=== PATIENT | female | born 1955 | race Caucasian/White ===

== ENCOUNTER → 2021-12-28 | Outpatient (CLI) | payer OTHER ==
[~2021-12-28] VITALS: Ht 149.9 cm; Wt 75.9 kg
[~2021-12-28] MED LIST: LIDOCAINE 1% INJ 10 ML VIAL INJ ONE
--- NOTE | 2021-12-28 11:10 | Diagnostic Imaging Report ---
INDICATION: Left breast abnormality on recent ultrasound. Patient presents for ultrasound guided biopsy. TECHNIQUE: The patient was brought to the procedure room and placed on the table in the supine position. Ultrasound imaging of the left breast was performed to evaluate for an appropriate entry site. The left breast was then prepped and draped in the usual sterile fashion. A small amount of 1% lidocaine was utilized for local anesthesia. A total of 4 core biopsies was obtained of the area of shadowing at the 4 o'clock location of the left breast 2 cm from the nipple utilizing a 14-gauge Achieve needle. A marker clip was then deployed. Hemostasis was obtained using manual compression. The patient tolerated the procedure well and was sent for a post procedure mammogram in satisfactory condition. IMPRESSION: Successful ultrasound-guided core biopsy of the area of shadowing at the 4 o'clock location of the left breast 2 cm from the nipple. Pathology results are currently pending. Dictated by: Dictated on workstation # [id number]
--- NOTE | 2021-12-28 13:26 | Diagnostic Imaging Report ---
INDICATION: Status post left breast ultrasound guided biopsy. Unilateral left 2-D CC and ML mammography was performed after patient underwent ultrasound-guided biopsy. Images demonstrate a marker clip in the mid left breast just lateral to the nipple line. There is a circumscribed nodule in the lateral left breast with marker clip from prior biopsy. IMPRESSION: Marker clip placement, as described. Patient is status post ultrasound-guided core biopsy. Dictated by: Dictated on workstation # [id number]
== END ==
LOC: RAD 09:00
PROVIDERS: ATTEND Nurse Practitioner
DX: R92.8 Other abnormal and inconclusive findings on diagnostic imaging of breast (principal); Z98.82 Breast implant status
CPT/HCPCS: 19083; 77065; G0279

== ENCOUNTER 2022-01-19 12:05 | Emergency (ER) | payer MEDICARE, MEDICAID ==
[~2022-01-19] VITALS: Ht 150 cm; Wt 75.3 kg
--- NOTE | 2022-01-19 12:47 | ED General ---
General Chief Complaint: General Problems/Pain Stated Complaint: JOINT PAIN Nursing Triage Note: pt ambulatory to room. pt reports hx of rheumatoid and osteo arthritis and complains of bilat knee joint pain and left shoulder joint pain. describes pain as constant sharp pains. states she does not take tylenol or ibuprofen at home. states she has a "pain medicine the clinic gave her" but unsure what it is called. states she moved to the area from [place] and was getting chemo treatments for her arthritis previously. states she has been unable to continue this since moving here Source of Information: Patient History of Present Illness Date Seen by Provider: Jan 19, 2022 Time Seen by Provider: 12:25 Initial Comments Patient is a 66-year-old female who presents to the emergency room with a chief complaint of bilateral knee pain, left shoulder pain. She states that the pain is sharp and worsened with movements. She states that she normally gets infusions monthly for her rheumatoid arthritis but has been without for the last several months due to moving to the area and not having a shell press operator. Patient states that she saw [facility] and was given a prescription but only 2 weeks worth. She states she is not taking any other Tylenol or ibuprofen. No fevers or chills. No joint swelling although she does states she thinks her left knee is a little swollen. No rashes. No COVID complaints. Patient does state that tramadol has helped her in the past. She is awaiting referral from [facility] to a shell press operator. All other review of systems reviewed and negative except as stated. Timing/Duration: 1 Week Severity: Moderate Associated Systoms: Denies Symptoms Allergies and Home Medications Allergies Coded Allergies: No Known Drug Allergies (Unverified , 12/28/21) Patient Home Medication List Home Medication List Reviewed: Yes Tramadol HCl (Tramadol HCl) 50 Mg Tablet, 50 MG PO Q6H PRN for PAIN Prescribed by: YOSHI CROWLEY on 01/19/22 1255 Review of Systems Review of Systems Constitutional: see HPI EENTM: no symptoms reported Respiratory: no symptoms reported Cardiovascular: no symptoms reported Gastrointestinal: no symptoms reported Genitourinary: no symptoms reported Musculoskeletal: joint pain (bilateral knees and left shoulder) Skin: no symptoms reported Psychiatric/Neurological: Headache (mild) All Other Systems Reviewed Negative Unless Noted: Yes Past Dnfvxhv-Gnwzys-Wfofur Hx Patient Social History Tobacco Use?: No Use of E-Cig and/or Vaping dev: No Substance use?: No Alcohol Use?: No Immunizations Up To Date Influenza Vaccine Up-to-Date: Yes; Up-to-Date Physical Exam Vital Signs Vital Signs - First Documented 01/19/22 12:20 Temp 36.8 Pulse 87 Resp 20 B/P (MAP) 146/89 (108) Pulse Ox 98 Capillary Refill : Height, Weight, BMI Height: '" Weight: lbs. oz. kg; 33.00 BMI Method: General Appearance: No Apparent Distress, WD/WN Eyes: Bilateral Eye Normal Inspection, Bilateral Eye PERRL, Bilateral Eye EOMI HEENT: PERRL/EOMI Respiratory: Lungs Clear, Normal Breath Sounds, No Accessory Muscle Use, No Respiratory Distress Cardiovascular: Regular Rate, Rhythm Extremity: Normal Capillary Refill, Normal Inspection, Normal Range of Motion, Other (Slight warmth bilateral knees, no erythema, good range of motion, no obvious effusion) Neurologic/Psychiatric: Alert, Oriented x3, No Motor/Sensory Deficits Skin: Normal Color, Warm/Dry Progress/Results/Core Measures Suspected Sepsis SIRS Temperature: Pulse: 87 Respiratory Rate: 20 Blood Pressure 146 /89 Mean: 108 Results/Orders Vital Signs/I&O 01/19/22 12:20 Temp 36.8 Pulse 87 Resp 20 B/P (MAP) 146/89 (108) Pulse Ox 98 Capillary Refill : Blood Pressure Mean: 108 Progress Note : Time: 12:43 Progress Note Patient seen and examined, complains of joint pain due to rheumatoid arthritis, difficulty in obtaining rheumatology follow-up. Patient has seen urgent care/[facility] walk-in. Usually gets infusions monthly and has not had any since the summertime. No fevers, chills. Mild headache. No COVID symptoms. Exam is basically unremarkable except for some very mild warmth in bilateral knees. We will send 3 or 4 days of pain medication and have her follow-up again with [facility]. Departure Impression Primary Impression: Arthritis pain Disposition: 01 HOME, SELF-CARE Condition: Stable Departure-Patient Inst. Decision time for Depature: 12:52 Referrals: [facility] (PCP/Family) Primary Care Physician Patient Instructions: Physical Activity for People With Arthritis Add. Discharge Instructions: Drink plenty of fluids to stay well-hydrated. You can use mfnx-wos-nockali muscle rubs joint pain remedies such as Biofreeze, lidocaine patches. Ibuprofen 600 mg which is 3 mdiz-rkf-ezijqkx tablets every 6-8 hours with food as needed for pain. I have written you a short course of tramadol you can take take 1 every 6 hours as needed for more severe pain. Call [facility] for further management of your rheumatoid arthritis pain as the emergency department cannot do chronic pain management. Return to the emergency department for any new, concerning or emergent health complaints. Scripts Tramadol HCl (Tramadol HCl) 50 Mg Tablet 50 MG PO Q6H PRN for PAIN, #15 TAB 0 Refills Prov: YOSHI CROWLEY MD 01/19/22 Copy Copies To 1: MEG TEJEDA KATHRYN M MD Jan 19, 2022 12:47
[2022-01-19] MEDS ORDERED: TRM50T PO (12:54)
[2022-01-19 13:26] VITALS: BP 114/73
== END 2022-01-19 13:26 | disposition home or self-care (01) ==
LOC: EDUNIT# 12:05 → ER 12:09
DX: M17.9 Osteoarthritis of knee, unspecified (principal)
CPT/HCPCS: 99283

== ENCOUNTER 2022-01-29 08:28 | Emergency (ER) | payer MEDICARE, MEDICAID ==
[~2022-01-29] VITALS: Ht 149 cm; Wt 75.0 kg
[~2022-01-29 08:28] MED LIST changes: -LIDOCAINE 1% INJ 10 ML VIAL INJ ONE; +TRM50T PO
[2022-01-29] MEDS ORDERED: KETOROLAC 30 MG/ML VIAL IVP ONE (10:30)
[2022-01-29] MEDS ORDERED: fentaNYL INJ 100 MCG/2 ML AMP IVP ONE (10:30)
[2022-01-29 10:34] LABS: BASOPHILS % (AUTO) 0 % (0-10); EOSINOPHILS # (AUTO) 0.2 10^3/uL (0.0-0.3); EOSINOPHILS % (AUTO) 2 % (0-10); HEMATOCRIT 34 % (35-52); HEMOGLOBIN 10.9 g/dL (11.5-16.0); LYMPHOCYTES # (AUTO) 2.4 10^3/uL (1.0-4.0); LYMPHOCYTES % (AUTO) 20 % (12-44); MEAN CORPUSCULAR HEMOGLOBIN 29 pg (25-34); MEAN CORPUSCULAR HGB CONC 32 g/dL (32-36); MEAN CORPUSCULAR VOLUME 90 fL (80-99); MEAN PLATELET VOLUME 9.6 fL (9.0-12.2); MONOCYTES # (AUTO) 0.8 10^3/uL (0.0-1.0); MONOCYTES % (AUTO) 7 % (0-12); NEUTROPHILS # (AUTO) 8.3 10^3/uL (1.8-7.8); NEUTROPHILS % (AUTO) 71 % (42-75); PLATELET COUNT 235 10^3/uL (130-400); WHITE BLOOD COUNT 11.7 10^3/uL (4.3-11.0)
[2022-01-29 10:44] LABS: ALBUMIN 3.4 GM/DL (3.2-4.5); POTASSIUM 4.2 MMOL/L (3.6-5.0)
[2022-01-29 10:46] LABS: CALCIUM 8.9 MG/DL (8.5-10.1)
[2022-01-29 10:47] LABS: TOTAL PROTEIN 7.5 GM/DL (6.4-8.2)
[2022-01-29 10:49] LABS: BILIRUBIN,TOTAL 0.3 MG/DL (0.1-1.0)
[2022-01-29 10:51] LABS: CREATININE SERUM 0.93 MG/DL (0.60-1.30)
[2022-01-29 10:54] LABS: URIC ACID 5.4 MG/DL (2.6-7.2)
[2022-01-29 11:00] LABS: ERYTHROCYTE SEDIMENTATION RATE 78 MM/HR (0-30)
[2022-01-29] MEDS ORDERED: HYDROcodone/APAP 5 MG/325 MG (LORTAB) TAB PO ONE (12:00)
--- NOTE | 2022-01-29 12:04 | ED General ---
General Chief Complaint: General Problems/Pain Stated Complaint: LEG PAIN - BOTH Nursing Triage Note: ARRIVED VIA WC WITH COMPLAINTS OF BILAT KNEE LEG PAIN FROM RA. STATES SHE HAS NOT BEEN ABLE TO RECEIVE HER TREATMENT AND THE TRAMADOL IS NOT HELPING. Source of Information: Patient Exam Limitations: No Limitations History of Present Illness Date Seen by Provider: Jan 29, 2022 Allergies and Home Medications Allergies Coded Allergies: Sulfa (Sulfonamide Antibiotics) (Verified Allergy, Unknown, 01/19/22) Patient Home Medication List Tramadol HCl (Tramadol HCl) 50 Mg Tablet, 50 MG PO Q6H PRN for PAIN Prescribed by: YOSHI CROWLEY on 01/19/22 1255 Past Eetuznu-Glmpun-Utvrdo Hx Patient Social History Tobacco Use?: No Substance use?: No Alcohol Use?: No Immunizations Up To Date First/Initial COVID19 Vaccinat: UNKNOWN COVID19 Vaccine Clinic Receptionist: UNKNOWN Physical Exam Vital Signs Vital Signs - First Documented 01/29/22 08:35 Temp 36.3 Pulse 77 Resp 16 B/P (MAP) 139/73 (95) Pulse Ox 97 O2 Delivery Room Air Capillary Refill : Less Than 3 Seconds Height, Weight, BMI Height: '" Weight: lbs. oz. kg; 33.00 BMI Method: Progress/Results/Core Measures Suspected Sepsis SIRS Temperature: Pulse: 77 Respiratory Rate: 16 Laboratory Tests 01/29/22 10:29: White Blood Count 11.7H Blood Pressure 139 /73 Mean: 95 Laboratory Tests 01/29/22 10:29: Creatinine 0.93, Platelet Count 235, Total Bilirubin 0.3 Results/Orders Lab Results Laboratory Tests Test 01/29/22 10:29 Range/Units White Blood Count 11.7 H 4.3-11.0 10^3/uL Red Blood Count 3.74 L 3.80-5.11 10^6/uL Hemoglobin 10.9 L 11.5-16.0 g/dL Hematocrit 34 L 35-52 % Mean Corpuscular Volume 90 80-99 fL Mean Corpuscular Hemoglobin 29 25-34 pg Mean Corpuscular Hemoglobin Concent 32 32-36 g/dL Red Cell Distribution Width 12.3 10.0-14.5 % Platelet Count 235 130-400 10^3/uL Mean Platelet Volume 9.6 9.0-12.2 fL Immature Granulocyte % (Auto) 0 % Neutrophils (%) (Auto) 71 42-75 % Lymphocytes (%) (Auto) 20 12-44 % Monocytes (%) (Auto) 7 0-12 % Eosinophils (%) (Auto) 2 0-10 % Basophils (%) (Auto) 0 0-10 % Neutrophils # (Auto) 8.3 H 1.8-7.8 10^3/uL Lymphocytes # (Auto) 2.4 1.0-4.0 10^3/uL Monocytes # (Auto) 0.8 0.0-1.0 10^3/uL Eosinophils # (Auto) 0.2 0.0-0.3 10^3/uL Basophils # (Auto) 0.0 0.0-0.1 10^3/uL Immature Granulocyte # (Auto) 0.0 0.0-0.1 10^3/uL Erythrocyte Sedimentation Rate 78 H 0-30 MM/HR Sodium Level 138 135-145 MMOL/L Potassium Level 4.2 3.6-5.0 MMOL/L Chloride Level 104 98-107 MMOL/L Carbon Dioxide Level 25 21-32 MMOL/L Anion Gap 9 5-14 MMOL/L Blood Urea Nitrogen 20 H 7-18 MG/DL Creatinine 0.93 0.60-1.30 MG/DL Estimat Glomerular Filtration Rate 69 BUN/Creatinine Ratio 22 Glucose Level 89 70-105 MG/DL Uric Acid 5.4 2.6-7.2 MG/DL Calcium Level 8.9 8.5-10.1 MG/DL Corrected Calcium 9.4 8.5-10.1 MG/DL Total Bilirubin 0.3 0.1-1.0 MG/DL Aspartate Amino Transf (AST/SGOT) 11 5-34 U/L Alanine Aminotransferase (ALT/SGPT) 9 0-55 U/L Alkaline Phosphatase 70 40-136 U/L Total Creatine Kinase 34 29-168 U/L C-Reactive Protein High Sensitivity 4.01 H 0.00-0.50 MG/DL Total Protein 7.5 6.4-8.2 GM/DL Albumin 3.4 3.2-4.5 GM/DL My Orders Orders - MELITA MENDEZ MD Cbc With Automated Diff (01/29/22 10:22) Comprehensive Metabolic Panel (01/29/22 10:22) Hs C Reactive Protein (01/29/22 10:22) Erythrocyte Sedimentation Rate (01/29/22 10:22) Uric Acid (01/29/22 10:22) Ra Factor (Rheumatoid Factor) (01/29/22 10:22) Creatine Kinase (01/29/22 10:22) Ketorolac Injection (Toradol Injection) (01/29/22 10:30) Fentanyl Inj (Sublimaze Injection) (01/29/22 10:30) Ed Iv/Invasive Line Start (01/29/22 10:22) Hydrocodone/Apap 5/325 Tablet (Lortab 5 (01/29/22 12:00) Medications Given in ED Current Medications Medications Dose Ordered Sig/Adarsh Route Start Time Stop Time Status Last Admin Dose Admin Acetaminophen/ Hydrocodone Bitart 1 ea ONCE ONCE PO 01/29/22 12:00 01/29/22 12:01 DC 01/29/22 12:00 1 EA Fentanyl Citrate 50 mcg ONCE ONCE IVP 01/29/22 10:30 01/29/22 10:31 DC 01/29/22 10:35 50 MCG Ketorolac Tromethamine 15 mg ONCE ONCE IVP 01/29/22 10:30 01/29/22 10:31 DC 01/29/22 10:34 15 MG Vital Signs/I&O 01/29/22 08:35 Temp 36.3 Pulse 77 Resp 16 B/P (MAP) 139/73 (95) Pulse Ox 97 O2 Delivery Room Air Capillary Refill : Less Than 3 Seconds Blood Pressure Mean: 95 Departure Impression Primary Impression: Rheumatoid arthritis Qualified Codes: M06.9 - Rheumatoid arthritis, unspecified Additional Impression: Bilateral knee pain Qualified Codes: M25.561 - Pain in right knee; M25.562 - Pain in left knee; G89.29 - Other chronic pain Disposition: 01 HOME, SELF-CARE Condition: Improved Departure-Patient Inst. Decision time for Depature: 12:04 Referrals: [facility] (PCP/Family) Primary Care Physician Patient Instructions: Rheumatoid Arthritis Add. Discharge Instructions: Drink plenty of clear liquids to stay well-hydrated. Restart meloxicam as prescribed. Add hydrocodone as prescribed for uncontrolled pain. Schedule follow-up appointment with your primary care provider soon as possible as you may need further pain management before your appointment with the insurance sales manager. Keep your appointment with insurance sales manager as scheduled. Hydrocodone may cause constipation. You may wish to take a stool softener such as Colace while you are on hydrocodone. Start your prednisone taper today. Take prednisone with food or milk to avoid stomach upset. Take prednisone early in the day to avoid sleep disturbance. Prednisone treatment should result in significant improvement in pain within 2 or 3 days. While you are on meloxicam and prednisone, it may be navas to take an antacid such as Pepcid (famotidine) 20 mg twice daily or omeprazole 20 mg daily. Return to care if you have worsening symptoms despite following these instructions. All discharge instructions reviewed with patient and/or family. Voiced understanding. Scripts Hydrocodone/Acetaminophen (Hydrocodone-Acetamin 5-325 mg) 5 Mg-325 Mg Tablet 1 TAB PO Q4H PRN for PAIN-BREAKTHROUGH, #10 TAB Prov: MELITA MENDEZ MD 01/29/22 Meloxicam (Meloxicam) 7.5 Mg Tablet 7.5 MG PO DAILY, #30 TAB Prov: MELITA MENDEZ MD 01/29/22 Prednisone (Prednisone) 10 Mg Tab 1-3 TAB PO UD, #18 TAB 3 tabs daily for 3 days, then 2 tabs daily for 3 days, then 1 tab daily for 3 days Prov: MELITA MENDEZ MD 01/29/22 MELITA MENDEZ MD Jan 29, 2022 12:04
[2022-01-29] MEDS ORDERED: PRD10T PO (12:08)
[2022-01-29] MEDS ORDERED: MELO7.5T46 PO (12:08)
[2022-01-29] MEDS ORDERED: ACHD5005 PO (12:08)
[2022-01-29 12:29] VITALS: BP 115/66
== END 2022-01-29 12:29 | disposition home or self-care (01) ==
LOC: EDUNIT# 08:28 → ER 08:30
DX: M06.9 Rheumatoid arthritis, unspecified (principal); Z28.310 Unvaccinated for COVID-19
CPT/HCPCS: 36415; 80053; 82550; 84550; 85025; 85652; 86141; 86431; 99283

== ENCOUNTER 2022-08-28 06:28 | Outpatient (CLI) | payer MEDICARE, MEDICAID ==
[~2022-08-28] VITALS: Ht 149.9 cm; Wt 79.9 kg
[~2022-08-28 06:28] MED LIST changes: +ACHD5005 PO; +MELO7.5T46 PO; +PRD10T PO
[2022-09-02] MEDS ORDERED: CITA40TA13 PO (14:18)
[2022-09-02] MEDS ORDERED: ATOR20TA66 PO (14:18)
== END 2022-09-02 14:30 | disposition home or self-care (01) ==
LOC: PREOP 06:28
PROVIDERS: ATTEND Surgery
DX: Z01.818 Encounter for other preprocedural examination (principal)

== ENCOUNTER 2022-09-10 06:56 | Day surgery (SDC) | payer MEDICARE, MEDICAID ==
[~2022-09-10] VITALS: Ht 149.9 cm; Wt 79.9 kg
[~2022-09-10 06:56] MED LIST changes: +ATOR20TA66 PO; +CITA40TA13 PO
[2022-09-10] MEDS ORDERED: LACTATED RINGERS 1,000 ML IV STA (07:04)
[2022-09-10] MEDS ORDERED: MIDAZOLAM 2 MG/2 ML (VERSED) VIAL ONE (07:16)
[2022-09-10] MEDS ORDERED: PROPOFOL INJECTION 50 ML IV ONE (07:16)
[2022-09-10 07:20] VITALS: BP 138/79
--- NOTE | 2022-09-10 08:11 | Progress Note-Pre Operative ---
Pre-Operative Progress Note Date H&P Reviewed: Sep 10, 2022 Time H&P Reviewed: 08:00 History & Physical: H&P Reviewed, Patient Examed, No changes noted Pre-Operative Diagnosis: change in bowel habits, rectal bleeding JOEL LEÓN DO Sep 10, 2022 08:11
[2022-09-10 08:45] VITALS: BP 99/57
[2022-09-10 08:50] VITALS: BP 102/59
--- NOTE | 2022-09-10 08:50 | Discharge Inst-Simple/Standard ---
Discharge Inst-Standard Patient Instructions/Follow Up Plan of Care/Instructions/FU: 1 week [place] Activity as Tolerated: Yes Discharge Diet: Regular Diet JOEL LEÓN DO Sep 10, 2022 08:50
--- NOTE | 2022-09-10 08:53 | Progress Note-Post Operative ---
Post-Operative Progess Note Surgeon (s)/Photographic Artist (s) Surgeon JOEL LEÓN DO Photographic Artist: na Pre-Operative Diagnosis change in bowel habits, rectal bleeding Post-Operative Diagnosis anal mass, cecal polyp Procedure & Operative Findings Date of Procedure 09/10/22 Procedure Performed/Findings colonoscopy c hot bx polypectomy cecal polyp, cold biopsies anal mass Anesthesia Type per design consultant Estimated Blood Loss Estimated blood loss (mL): scant Specimens/Packing Specimens Removed cecal polyp, anal mass JOEL LEÓN DO Sep 10, 2022 08:53
[2022-09-10 09:01] VITALS: BP 113/62
[2022-09-10 09:29] VITALS: BP 113/62
--- NOTE | 2022-09-10 14:01 | Anesthesia-General Post-Op ---
MAC Patient Condition Mental Status/LOC: Same as Preop Cardiovascular: Satisfactory Nausea/Vomiting: Absent Respiratory: Satisfactory Pain: Controlled Complications: Absent Post Op Complications Complications None Follow Up Care/Instructions Patient Instructions None needed. Anesthesiology Discharge Order Discharge Order Patient is doing well, no complaints, stable vital signs, no apparent adverse anesthesia problems. No complications reported per nursing. TOMA GILMAN CRNA Sep 10, 2022 14:01
--- NOTE | 2022-09-10 14:05 | OPERATIVE REPORT ---
DATE OF SERVICE: 09/10/2022 PREOPERATIVE DIAGNOSES: Change in bowel habits, rectal bleeding. POSTOPERATIVE DIAGNOSES: Anal mass,cecal polyp. PROCEDURE: Colonoscopy with hot biopsy polypectomy of cecal polyp, cold biopsies of anal mass. SURGEON: Joel Stallworth DO ANESTHESIA: Per LINER INSTALLER. ESTIMATED BLOOD LOSS: Scant. COMPLICATIONS: None. COMPLICATIONS: Cecal polyp and anal mass. INDICATIONS: The patient is a 67-year-old female who has had change in bowel habits and pencil thin stools. She has had some rectal bleeding. She understands risks and benefits of procedure and wished to proceed. Consent was signed in chart. DESCRIPTION OF PROCEDURE: The patient was taken to endoscopy suite, placed in left lateral recumbent position. Timeout was performed. Digital rectal exam was performed. [ ] palpable mass at the anus circumferentially. Scope was then inserted, noting mass-like pathology present. Scope was advanced all the way to the cecum with minimal difficulty. Prep was adequate. In the cecum, there was a small polyp, which hot biopsy polypectomy was performed. Scope was then slowly retracted back. No polyps, masses or ulcerations within the ascending, transverse, descending and sigmoid colon. Once in the rectum, attempted to retroflex, but was too narrow. Scope was kept in the normal position, slowly withdrawn at the anus. Multiple circumferential masses present. Cold biopsies were obtained. Scope was then slowly retracted back until completely removed. The patient tolerated the procedure well without complications, taken to recovery room in stable condition. RECOMMENDATIONS: The patient will follow up on pathology in one week. Any issues before that, be seen at that time. Job ID: [id number] DocumentID: [id number] Dictated Date: 09/10/2022 08:55:29 Forging Press Lever Tender Date: 09/10/2022 14:03:00 Dictated By: JOEL STALLWORTH DO
== END 2022-09-10 09:33 | disposition home or self-care (01) ==
LOC: ENDO 06:56
PROVIDERS: ATTEND Surgery
DX: D12.0 Benign neoplasm of cecum (principal); K62.6 Ulcer of anus and rectum

== ENCOUNTER 2022-10-03 05:30 | Outpatient (CLI) | payer MEDICARE, MEDICAID ==
[~2022-10-03] VITALS: Ht 149.9 cm; Wt 79.8 kg
== END 2022-10-07 15:16 ==
LOC: PREOP 05:30
PROVIDERS: ATTEND Surgery
DX: Z01.818 Encounter for other preprocedural examination (principal)

== ENCOUNTER → 2022-11-28 | Outpatient (CLI) | payer MEDICARE, MEDICAID ==
--- NOTE | 2022-11-28 16:01 | Diagnostic Imaging Report ---
Indication: Arthritis. The patient was administered 25.1 mCi technetium 99m MDP intravenously and whole-body imaging was performed after a three-hour delay. There is normal uptake of activity by the axial and appendicular skeleton. There is uptake by the right kidney with excretion to the urinary bladder. Left kidney is not visualized and may be surgically absent. Mild uptake in the lower thoracic spine is noted which may be degenerative. There is also some uptake in the right foot and ankle which is likely degenerative. There are postoperative changes of bilateral knee arthroplasties. No suspicious foci of tracer accumulation is seen to suggest occult fracture or osseous metastatic disease. IMPRESSION: Degenerative and postop changes. No other significant abnormality is detected. Dictated by: Dictated on workstation # [id number]
== END ==
LOC: CARD 10:59
PROVIDERS: ATTEND Family Medicine
DX: M19.90 Unspecified osteoarthritis, unspecified site (principal); Z96.653 Presence of artificial knee joint, bilateral; Z78.0 Asymptomatic menopausal state
CPT/HCPCS: 78306; A9503

== ENCOUNTER → 2022-12-03 | Outpatient (CLI) | payer MEDICARE, MEDICAID ==
--- NOTE | 2022-12-03 16:08 | Diagnostic Imaging Report ---
INDICATION: Postmenopausal state. COMPARISON: None available. FINDINGS: AP Spine L1-L4: [BMD (g/cm2): NA] [T-Score: NA] [Z-Score: NA] [BMD Previous: NA] [BMD % Change: NA] LT Hip Neck: [BMD (g/cm2): 0.762] [T-Score: -2.0] [Z-Score: -0.8] LT Hip Total: [BMD (g/cm2):0.919] [T-Score:-0.7] [Z-Score: 0.2] [BMD Previous: NA] [BMD % Change: NA] RT Hip Neck: [BMD (g/cm2):0.800] [T-Score:-1.7] [Z-Score:-0.6] RT Hip Total: [BMD (g/cm2):0.907] [T-score:-0.8] [Z-Score:0.1] [BMD Previous:NA] [BMD % Change:NA] *Indicates significant change from prior examination based on 95% confidence level. World Health Organization criteria for BMD interpretation classify patients as Normal (T-score at or above -1.0), Osteopenic (T-score between -1.0 and -2.5) or Osteoporotic (T-score at or below -2.5). LIMITATIONS AND MODIFICATION: The lumbar spine is not evaluated secondary to post surgical changes. FRACTURE RISK (FRAX SCORE): The ten year probability of (%): Major Osteoporotic Fracture: [12.9] Hip Fracture: [2.1] IMPRESSION: 1. Osteopenia (Low bone mass). 2. Baseline examination. 3. See below National Osteoporosis Foundation guidelines on when to potentially initiate pharmacologic therapy. Based on the National Osteoporosis Foundation Guidelines, pharmacologic treatment should be initiated in any of the following, unless clinical conditions suggest otherwise: * Any patient with prior fragility fracture of the hip or vertebrae. A spine fracture indicates 5X risk for subsequent spine fracture and 2X risk for subsequent hip fracture. * Osteoporosis (T-score <-2.5). * Postmenopausal women and men age 50 and older with low bone mass/osteopenia (T-score between -1.0 and -2.5) by DXA and 10-year major osteoporotic fracture greater than 20% or a 10-year probability of hip fracture greater than 3%. These fracture risks are supplied above in the FRAX score, if applicable. * Clinician judgement and/or patient preferences may indicate treatment for people with 10-year fracture probabilities above or below these levels. Dictated by: Dictated on workstation # [id number]
== END ==
LOC: RAD 14:00
PROVIDERS: ATTEND Family Medicine
DX: M85.852 Other specified disorders of bone density and structure, left thigh (principal); M85.851 Other specified disorders of bone density and structure, right thigh; Z78.0 Asymptomatic menopausal state
CPT/HCPCS: 77080

== ENCOUNTER → 2023-01-07 | Outpatient (CLI) | payer MEDICARE, MEDICAID ==
--- NOTE | 2023-01-07 17:09 | Diagnostic Imaging Report ---
EXAMINATION: Abdomen 1 view HISTORY: SITZ MARKER DAY 1 COMPARISON: None available. FINDINGS: There has been a lumbar spine fusion. There are 24 Sitz markers projecting mostly over the right colon. No dilated bowel or free air. IMPRESSION: 1. There are 24 Sitz markers projecting mostly over the right colon. Dictated by: Dictated on workstation # [id number]
== END ==
LOC: RAD 15:05
PROVIDERS: ATTEND Surgery
DX: K56.41 Fecal impaction (principal)
CPT/HCPCS: 74018

== ENCOUNTER → 2023-01-09 | Outpatient (CLI) | payer MEDICARE, MEDICAID ==
--- NOTE | 2023-01-09 12:49 | Diagnostic Imaging Report ---
EXAMINATION: Abdomen 1 view HISTORY: Constipation COMPARISON: 01/07/2023 FINDINGS: There are 17 Sitzmarks markers projecting over the abdomen. No dilated bowel or free air. There has been a lumbar spine fusion. IMPRESSION: 1. There are 17 Sitz markers projecting over the abdomen. Dictated by: Dictated on workstation # [id number]
== END ==
LOC: RAD 10:16
PROVIDERS: ATTEND Surgery
DX: K59.00 Constipation, unspecified (principal)
CPT/HCPCS: 74018

== ENCOUNTER → 2023-01-11 | Outpatient (CLI) | payer MEDICARE, MEDICAID ==
--- NOTE | 2023-01-11 13:42 | Diagnostic Imaging Report ---
INDICATION: Constipation. 3 views were obtained. FINDINGS: The bowel gas pattern is nonspecific. There appear to be Sitz markers in the descending colon. There are 3 Sitz markers in the distal colon. There are 2 Sitz markers in the sigmoid colon. There are postsurgical changes in lower lumbar spine. IMPRESSION: Nonspecific bowel gas pattern with progression of Sitz markers as described. There are now a total of 13 cyst markers compared to previous 17. Dictated by: Dictated on workstation # [id number]
== END ==
LOC: RAD 12:49
PROVIDERS: ATTEND Surgery
DX: K56.49 Other impaction of intestine (principal); K59.00 Constipation, unspecified
CPT/HCPCS: 74018

== ENCOUNTER → 2023-01-13 | Outpatient (CLI) | payer MEDICARE, MEDICAID ==
--- NOTE | 2023-01-13 15:04 | Diagnostic Imaging Report ---
INDICATION: Constipation. Sitz marker follow-up. COMPARISON: 01/11/2023 FINDINGS: Two frontal radiographic views of the abdomen were obtained and again show moderate air and stool scattered throughout the colon. Sitz markers are again identified projecting primarily over the transverse and proximal descending colon. A total of 5 Sitz markers remain. This is improved compared to 01/11/2023. No unexpected radiopaque foreign bodies are seen. There is no large collection of free intraperitoneal air. IMPRESSION: 1. Nonobstructed small bowel gas pattern 2. Residual Sitz markers, as above. Dictated by: Dictated on workstation # [id number]
== END ==
LOC: RAD 13:32
PROVIDERS: ATTEND Surgery
DX: K59.00 Constipation, unspecified (principal)
CPT/HCPCS: 74018